=== PATIENT | female | born 1995 | race Caucasian/White ===

== ENCOUNTER 2018-10-02 16:49 | Emergency (ER) | payer OTHER ==
[~2018-10-02] VITALS: Ht 170.2 cm; Wt 54.4 kg
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
--- NOTE | 2018-10-02 17:35 | Diagnostic Imaging Report ---
EXAM: HAND, LEFT, 3 VIEWS INDICATION: Trauma. COMPARISON: None. FINDINGS: No fracture or malalignment. No suspicious osteoblastic or lytic lesions. Soft tissue shadows are normal. IMPRESSION: No acute radiographic findings in the left hand. Dictated by: Dictated on workstation # [id number]
[2018-10-02 17:41] VITALS: BP 154/71
== END 2018-10-02 17:42 | disposition home or self-care (01) ==
LOC: ER 16:51
DX: S60.212A Contusion of left wrist, initial encounter (principal); Z90.89 Acquired absence of other organs; V43.52XA Car driver injured in collision with other type car in traffic accident, initial encounter
CPT/HCPCS: 73130

== ENCOUNTER 2018-10-07 23:33 | Emergency (ER) | payer OTHER | END 2018-10-08 01:51 | disposition home or self-care (01) | LOC: ER 10-08 01:51 ==

== ENCOUNTER 2019-02-18 19:01 | Emergency (ER) | payer OTHER ==
[~2019-02-18] VITALS: Ht 170 cm; Wt 60.0 kg
[~2019-02-18 19:01] MED LIST: CYCL10TA9 PO; MELO15TA14 PO
[2019-02-18] MEDS ORDERED: NS IV 1000 ML 1,000 ML IV SCH (19:14)
[2019-02-18] MEDS ORDERED: ONDANSETRON 4 MG/2 ML (SDV) Z0FRAN IVP ONE (19:30)
[2019-02-18 19:52] LABS: BASOPHILS % (AUTO) 0 % (0-10); BILIRUBIN,URINE NEGATIVE (NEGATIVE); CLARITY,URINE CLEAR; COLOR,URINE YELLOW; EOSINOPHILS # (AUTO) 0.1 10^3/uL (0.0-0.3); EOSINOPHILS % (AUTO) 1 % (0-10); GLUCOSE, URINE (UA) NEGATIVE (NEGATIVE); HEMATOCRIT 38 % (35-52); HEMOGLOBIN 13.4 G/DL (11.5-16.0); KETONES,URINE NEGATIVE (NEGATIVE); LEUKOCYTE ESTERASE ,URINE NEGATIVE (NEGATIVE); LYMPHOCYTES # (AUTO) 1.7 X 10^3 (1.0-4.0); LYMPHOCYTES % (AUTO) 26 % (12-44); MEAN CORPUSCULAR HEMOGLOBIN 31 PG (25-34); MEAN CORPUSCULAR HGB CONC 35 G/DL (32-36); MEAN CORPUSCULAR VOLUME 88 FL (80-99); MEAN PLATELET VOLUME 10.3 FL (7.4-10.4); MONOCYTES # (AUTO) 0.6 X 10^3 (0.0-1.0); MONOCYTES % (AUTO) 9 % (0-12); NEUTROPHILS # (AUTO) 4.1 X 10^3 (1.8-7.8); NEUTROPHILS % (AUTO) 63 % (42-75); NITRITE,URINE NEGATIVE (NEGATIVE); PH,URINE 7 (5-9); PLATELET COUNT 181 10^3/uL (130-400); PROTEIN,URINE NEGATIVE (NEGATIVE); RED CELL DISTRIBUTION WIDTH 12.2 % (10.0-14.5); UROBILINOGEN,URINE NORMAL (NORMAL); WHITE BLOOD COUNT 6.5 10^3/uL (4.3-11.0)
[2019-02-18 19:57] LABS: BACTERIA,URINE TRACE /HPF; RBC,URINE 0-2 /HPF
--- NOTE | 2019-02-18 20:01 | ED General ---
General Chief Complaint: Cardiac/General Problems Stated Complaint: SOA,TIGHTNESS IN CHEST Nursing Triage Note: pt presents to ED with c/o palpitations, vomiting, SOB, chest tightness, and "heart racing" after taking adderall and ecstacy yesterday at 1300. pt A&Ox3 and amb to room 10. Nursing Sepsis Screen: No Definite Risk History of Present Illness Date Seen by Provider: Feb 18, 2019 Time Seen by Provider: 19:15 Initial Comments 23-year-old female presents for tachycardia and palpitations. She reports this morning taking Adderall at 0900, which she uses regularly for ADD. At approximately 1330 she took Ecstasy, from a friend that is not reliable. She also drank ETOH yesterday morning, but unsure what kind or how much. She denies taking anything last night or or ETOH today. She has never taken Ecstasy before. She has been vomiting for 8-10 hours today. She was unable to eat and drink today, because of N/V. Timing/Duration: 12-24 Hours Severity: Mild Associated Systoms: Nausea/Vomiting Allergies and Home Medications Allergies Coded Allergies: No Known Drug Allergies (Unverified , 10/02/18) Home Medications Cyclobenzaprine HCl 10 Mg Tablet, 10 MG PO Q8H Prescribed by: MADAI MARINO on 10/08/18124 Meloxicam 15 Mg Tablet, 15 MG PO DAILY Prescribed by: MADAI MARINO on 10/08/18124 Patient Home Medication List Home Medication List Reviewed: Yes Review of Systems Review of Systems Constitutional: no symptoms reported, see HPI Cardiovascular: see HPI, palpitations Gastrointestinal: see HPI, loss of appetite, nausea, vomiting All Other Systems Reviewed Negative Unless Noted: Yes Past Nnszhrc-Jqugbe-Upjzqe Hx Past Med/Social Hx: Reviewed Nursing Past Med/Soc Hx Patient Social History Alcohol Use: Occasionally Uses Recreational Drug Use: Yes Drug of Choice: ecstacy 2nd Hand Smoke Exposure: No Recent Foreign Travel: No Contact w/Someone Who Travel: No Recent Infectious Disease Expo: No Recent Hopitalizations: No Immunizations Up To Date PED Vaccines UTD: Yes Seasonal Allergies Seasonal Allergies: No Past Medical History Surgeries: No Adenoidectomy, Tonsillectomy Respiratory: No Cardiac: No Neurological: No Reproductive Disorders: No Genitourinary: No Gastrointestinal: No Musculoskeletal: No Endocrine: No HEENT: No Cancer: No Psychosocial: Yes ADD/ADHD Integumentary: No Blood Disorders: No Physical Exam Vital Signs Vital Signs - First Documented 02/18/19 19:11 Temp 37.5 Pulse 102 Resp 22 B/P (MAP) 137/84 (101) Pulse Ox 100 O2 Delivery Room Air Capillary Refill : Less Than 3 Seconds Height, Weight, BMI Height: 5'7.00" Weight: 120lbs. oz. 54.878833jx; 20.00 BMI Method:Stated General Appearance: No Apparent Distress, WD/WN Eyes: Bilateral Eye Normal Inspection, Bilateral Eye PERRL, Bilateral Eye EOMI HEENT: PERRL/EOMI, TMs Normal, Normal ENT Inspection, Pharynx Normal Neck: Full Range of Motion, Normal Inspection, Non Tender, Supple Respiratory: Chest Non Tender, Lungs Clear, Normal Breath Sounds Cardiovascular: Regular Rate, Rhythm, No Murmur, Normal Peripheral Pulses, Tachycardia Gastrointestinal: Normal Bowel Sounds, Non Tender, Soft Back: Normal Inspection, No CVA Tenderness, No Vertebral Tenderness Extremity: Normal Capillary Refill, Normal Inspection, Normal Range of Motion Neurologic/Psychiatric: Alert, Oriented x3, No Motor/Sensory Deficits, Normal Mood/Affect Skin: Normal Color, Warm/Dry Progress/Results/Core Measures Suspected Sepsis Recent Fever Within 48 Hours: No Infection Criteria Present: None New/Unexplained Altered Menta: No Sepsis Screen: No Definite Risk SIRS Temperature: Pulse: 102 Respiratory Rate: 22 Laboratory Tests 02/18/19 19:30: White Blood Count 6.5 Blood Pressure 137 /84 Mean: 101 Laboratory Tests 02/18/19 19:30: Creatinine 0.79, Platelet Count 181, Total Bilirubin 0.4 Results/Orders Lab Results Laboratory Tests Test 02/18/19 19:30 Range/Units White Blood Count 6.5 4.3-11.0 10^3/uL Red Blood Count 4.33 L 4.35-5.85 10^6/uL Hemoglobin 13.4 11.5-16.0 G/DL Hematocrit 38 35-52 % Mean Corpuscular Volume 88 80-99 FL Mean Corpuscular Hemoglobin 31 25-34 PG Mean Corpuscular Hemoglobin Concent 35 32-36 G/DL Red Cell Distribution Width 12.2 10.0-14.5 % Platelet Count 181 130-400 10^3/uL Mean Platelet Volume 10.3 7.4-10.4 FL Neutrophils (%) (Auto) 63 42-75 % Lymphocytes (%) (Auto) 26 12-44 % Monocytes (%) (Auto) 9 0-12 % Eosinophils (%) (Auto) 1 0-10 % Basophils (%) (Auto) 0 0-10 % Neutrophils # (Auto) 4.1 1.8-7.8 X 10^3 Lymphocytes # (Auto) 1.7 1.0-4.0 X 10^3 Monocytes # (Auto) 0.6 0.0-1.0 X 10^3 Eosinophils # (Auto) 0.1 0.0-0.3 10^3/uL Basophils # (Auto) 0.0 0.0-0.1 10^3/uL Urine Color YELLOW Urine Clarity CLEAR Urine pH 7 5-9 Urine Specific [place] 1.005 L 1.016-1.022 Urine Protein NEGATIVE NEGATIVE Urine Glucose (UA) NEGATIVE NEGATIVE Urine Ketones NEGATIVE NEGATIVE Urine Nitrite NEGATIVE NEGATIVE Urine Bilirubin NEGATIVE NEGATIVE Urine Urobilinogen NORMAL NORMAL MG/DL Urine Leukocyte Esterase NEGATIVE NEGATIVE Urine RBC (Auto) 1+ H NEGATIVE Urine RBC 0-2 /HPF Urine WBC NONE /HPF Urine Squamous Epithelial Cells 2-5 /HPF Urine Crystals NONE /LPF Urine Bacteria TRACE /HPF Urine Casts NONE /LPF Urine Mucus NEGATIVE /LPF Urine Culture Indicated NO Sodium Level 141 135-145 MMOL/L Potassium Level 3.7 3.6-5.0 MMOL/L Chloride Level 108 H 98-107 MMOL/L Carbon Dioxide Level 23 21-32 MMOL/L Anion Gap 10 5-14 MMOL/L Blood Urea Nitrogen 9 7-18 MG/DL Creatinine 0.79 0.60-1.30 MG/DL Estimat Glomerular Filtration Rate > 60 BUN/Creatinine Ratio 11 Glucose Level 106 H 70-105 MG/DL Calcium Level 9.3 8.5-10.1 MG/DL Corrected Calcium 8.9 8.5-10.1 MG/DL Total Bilirubin 0.4 0.1-1.0 MG/DL Aspartate Amino Transf (AST/SGOT) 63 H 5-34 U/L Alanine Aminotransferase (ALT/SGPT) 28 0-55 U/L Alkaline Phosphatase 55 40-136 U/L Total Protein 7.4 6.4-8.2 GM/DL Albumin 4.5 3.2-4.5 GM/DL TSH [place] Testing 2.22 0.35-4.94 UIU/ML Salicylates Level < 5.0 L 5.0-20.0 MG/DL Urine Opiates Screen NEGATIVE NEGATIVE Urine Oxycodone Screen NEGATIVE NEGATIVE Urine Methadone Screen NEGATIVE NEGATIVE Urine Propoxyphene Screen NEGATIVE NEGATIVE Acetaminophen Level < 10 L 10-30 UG/ML Urine Barbiturates Screen NEGATIVE NEGATIVE Ur Tricyclic Antidepressants Screen NEGATIVE NEGATIVE Urine Phencyclidine Screen NEGATIVE NEGATIVE Urine Amphetamines Screen NEGATIVE NEGATIVE Urine Methamphetamines Screen NEGATIVE NEGATIVE Urine Benzodiazepines Screen NEGATIVE NEGATIVE Urine Cocaine Screen NEGATIVE NEGATIVE Urine Cannabinoids Screen NEGATIVE NEGATIVE Serum Alcohol < 10 <10 MG/DL My Orders Orders - MARIA ISABEL,VIKAS BOLT SORTER Ua Culture If Indicated (02/18/19 19:14) Cbc With Automated Diff (02/18/19 19:14) Comprehensive Metabolic Panel (02/18/19 19:14) Alcohol (02/18/19 19:14) Drug Screen Stat (Urine) (02/18/19 19:14) Acetaminophen (02/18/19 19:14) Salicylate (02/18/19 19:14) Ekg Tracing (02/18/19 19:14) Ed Iv/Invasive Line Start (02/18/19 19:14) Thyroid Analyzer (02/18/19 19:14) Monitor-Rhythm Ecg Trace Only (02/18/19 19:14) Ns Iv 1000 Ml (Sodium Chloride 0.9%) (02/18/19 19:14) Ondansetron Injection (Zofran Injectio (02/18/19 19:30) Medications Given in ED Current Medications Medications Dose Ordered Sig/Bairon Route Start Time Stop Time Status Last Admin Dose Admin Ondansetron HCl 4 mg ONCE ONCE IVP 02/18/19 19:30 02/18/19 19:31 DC 02/18/19 19:40 4 MG Vital Signs/I&O 02/18/19 02/18/19 19:11 20:56 Temp 37.5 Pulse 102 83 Resp 22 12 B/P (MAP) 137/84 (101) 104/68 Pulse Ox 100 99 O2 Delivery Room Air Room Air Capillary Refill : Less Than 3 Seconds Blood Pressure Mean: 101 Progress Note : Time: 19:15 Progress Note Patient seen and evaluated, will get labs, EKG, normal saline 1 L per IV, Zofran 4 mg IV for nausea. And continue to monitor, Pulse 90-105 1939 Patient's report of symptoms changes, she first said the Adderall and Ecstasy were today, now she said it was yesterday and she drank ETOH today. 1999 Patient report N/V and palpitations are improved. She now reports she ate and drank water, most of today. Because nauseated this evening, but did not vomit. Pulse 80-90. 2029 Labs essentially normal. UDS Negative, explained these results are not compatible if she takes Adderall regularly. She denies taking it today. Stressed the importance to follow up with her PCP and only take prescribed medications, as directed. She reports to be feeling better and no further palpitations. Discharge instructions and return precautions reviewed. ECG Initial ECG Impression Date: Feb 18, 2019 Initial ECG Impression Time: 19:14 Initial ECG Rate: 98 Initial ECG Rhythm: Normal Sinus Initial ECG Intervals: Normal Initial ECG Intervals [place] 164, QRSD 86, QT 356, QTc 455. [place] P 40, QRS 32, T 71. Initial ECG Impression: Normal Initial ECG Comparisson: No Previous ECG Available Comment Reviewed with Dr. Marino, agreed with interpretation. Departure Impression Primary Impression: Palpitations Additional Impressions: Nausea & vomiting Qualified Codes: R11.14 - Bilious vomiting Substance abuse Disposition: 01 HOME, SELF-CARE Condition: Improved Departure-Patient Inst. Decision time for Depature: 20:30 Referrals: NO,LOCAL PHYSICIAN (PCP/Family) Primary Care Physician Patient Instructions: Polysubstance Abuse (DC), Nausea and Vomiting, Adult (DC) Add. Discharge Instructions: Increase water intake, one 16 ounce bottle water every hour while awake. Do not take any pills or drugs that are not prescribed to you and only take as directed Follow-up with your primary care provider if symptoms do not improve or worsen. Return to the emergency department for new, urgent health care problems. All discharge instructions reviewed with patient and/or family. Voiced understanding. Copy Copies To 1: MARCI CARBAJAL MD; LUI RAMEY MD, AMY ARNP Feb 18, 2019 20:01
[2019-02-18 20:04] LABS: AMPHETAMINE SCREEN, URINE NEGATIVE (NEGATIVE); BARBITURATE SCREEN URINE NEGATIVE (NEGATIVE); BENZODIAZEPINES SCREEN URINE NEGATIVE (NEGATIVE); CANNABINOID SCREEN, URINE NEGATIVE (NEGATIVE); COCAINE SCREEN URINE NEGATIVE (NEGATIVE); METHADONE STAT NEGATIVE (NEGATIVE); METHAMPHETAMINE SCREEN URINE S NEGATIVE (NEGATIVE); OPIATE SCREEN URINE NEGATIVE (NEGATIVE); OXYCODONE STAT NEGATIVE (NEGATIVE); PROPOXYPHENE STAT NEGATIVE (NEGATIVE); TRICYCLIC ANTIDEPRESSANTS SCRE NEGATIVE (NEGATIVE)
[2019-02-18 20:16] LABS: ALANINE AMINOTRANSFERASE 28 U/L (0-55); ALBUMIN 4.5 GM/DL (3.2-4.5); ALKALINE PHOSPHATASE 55 U/L (40-136); BILIRUBIN,TOTAL 0.4 MG/DL (0.1-1.0); BUN/CREATININE RATIO 11; CALCIUM 9.3 MG/DL (8.5-10.1); CARBON DIOXIDE 23 MMOL/L (21-32); CHLORIDE 108 MMOL/L (98-107); CREATININE SERUM 0.79 MG/DL (0.60-1.30); GFR ESTIMATED > 60; GLUCOSE 106 MG/DL (70-105); POTASSIUM 3.7 MMOL/L (3.6-5.0); SALICYLATE < 5.0 MG/DL (5.0-20.0); SODIUM 141 MMOL/L (135-145); TOTAL PROTEIN 7.4 GM/DL (6.4-8.2)
[2019-02-18 20:25] LABS: ACETAMINOPHEN < 10 UG/ML (10-30)
[2019-02-18 20:56] VITALS: BP 104/68
== END 2019-02-18 20:50 | disposition home or self-care (01) ==
LOC: EDUNIT# 19:01 → ER 19:02
DX: R00.2 Palpitations (principal); R11.2 Nausea with vomiting, unspecified; F16.10 Hallucinogen abuse, uncomplicated; F15.10 Other stimulant abuse, uncomplicated; F90.9 Attention-deficit hyperactivity disorder, unspecified type; Z90.89 Acquired absence of other organs
CPT/HCPCS: 36415; 80053; 80306; 80320; 80329; 81000; 84443; 85025; 93005; 93041

== ENCOUNTER 2019-03-02 15:59 | Emergency (ER) | payer OTHER ==
[~2019-03-02] VITALS: Ht 170.1 cm; Wt 54.5 kg
[2019-03-02 16:45] LABS: BASOPHILS % (AUTO) 0 % (0-10); EOSINOPHILS # (AUTO) 0.1 10^3/uL (0.0-0.3); EOSINOPHILS % (AUTO) 1 % (0-10); HEMATOCRIT 39 % (35-52); HEMOGLOBIN 13.2 G/DL (11.5-16.0); LYMPHOCYTES % (AUTO) 26 % (12-44); MEAN CORPUSCULAR HEMOGLOBIN 31 PG (25-34); MEAN CORPUSCULAR HGB CONC 34 G/DL (32-36); MEAN CORPUSCULAR VOLUME 89 FL (80-99); MEAN PLATELET VOLUME 10.3 FL (7.4-10.4); MONOCYTES # (AUTO) 0.7 X 10^3 (0.0-1.0); MONOCYTES % (AUTO) 9 % (0-12); NEUTROPHILS # (AUTO) 4.8 X 10^3 (1.8-7.8); NEUTROPHILS % (AUTO) 63 % (42-75); PLATELET COUNT 189 10^3/uL (130-400); RED CELL DISTRIBUTION WIDTH 12.3 % (10.0-14.5); WHITE BLOOD COUNT 7.5 10^3/uL (4.3-11.0)
--- NOTE | 2019-03-02 16:50 | Diagnostic Imaging Report ---
INDICATION: Tachycardia and left arm pain. Frontal chest obtained at 4:42 p.m. FINDINGS: Heart and mediastinal silhouette are normal in appearance. The lungs appear clear. There is no pneumothorax or pleural fluid. IMPRESSION: Negative chest. Dictated by: Dictated on workstation # [id number]
[2019-03-02 17:03] LABS: ALANINE AMINOTRANSFERASE 13 U/L (0-55); ALBUMIN 4.3 GM/DL (3.2-4.5); ALKALINE PHOSPHATASE 41 U/L (40-136); BILIRUBIN,TOTAL 0.2 MG/DL (0.1-1.0); BUN/CREATININE RATIO 14; CALCIUM 9.3 MG/DL (8.5-10.1); CARBON DIOXIDE 23 MMOL/L (21-32); CHLORIDE 107 MMOL/L (98-107); CREATININE SERUM 0.71 MG/DL (0.60-1.30); GFR ESTIMATED > 60; GLUCOSE 95 MG/DL (70-105); POTASSIUM 3.8 MMOL/L (3.6-5.0); SODIUM 139 MMOL/L (135-145); TOTAL PROTEIN 7.1 GM/DL (6.4-8.2)
[2019-03-02 17:13] LABS: INR 0.9 (0.8-1.4); PROTHROMBIN TIME PATIENT 12.9 SEC (12.2-14.7)
[2019-03-02 17:59] LABS: AMPHETAMINE SCREEN, URINE NEGATIVE (NEGATIVE); BARBITURATE SCREEN URINE NEGATIVE (NEGATIVE); BENZODIAZEPINES SCREEN URINE NEGATIVE (NEGATIVE); CANNABINOID SCREEN, URINE POSITIVE (NEGATIVE); COCAINE SCREEN URINE NEGATIVE (NEGATIVE); METHADONE STAT NEGATIVE (NEGATIVE); METHAMPHETAMINE SCREEN URINE S NEGATIVE (NEGATIVE); OPIATE SCREEN URINE NEGATIVE (NEGATIVE); OXYCODONE STAT NEGATIVE (NEGATIVE); PROPOXYPHENE STAT NEGATIVE (NEGATIVE); TRICYCLIC ANTIDEPRESSANTS SCRE NEGATIVE (NEGATIVE)
--- NOTE | 2019-03-02 18:32 | ED Chest Pain ---
General Chief Complaint: Cardiac/General Problems Stated Complaint: HEART RACING / L ARM PAIN Nursing Triage Note: PT AMB TO RM 2 WITH COMPLAINT OF HIGH HEART RATE AND LEFT ARM PAIN. PT STATES HER HEART HAS BEEN RACING ALL DAY. STATES WHENEVER HER HEART RATE ELEVATED SHE BEGAN TO HAVE LEFT ARM PAIN. Nursing Sepsis Screen: No Definite Risk Source: patient Exam Limitations: no limitations History of Present Illness Date Seen by Provider: Mar 02, 2019 Time Seen by Provider: 16:15 Initial Comments This 23-year-old young lady presents to the emergency room with complaints of palpitations, racing heart, pain in the left chest and left arm, "seeing stars", and tunnel vision. She reports this happened around noon and worsened when she went to work. Exertion worsens the symptoms. Deep inspiration does not change them. She had a similar episode a couple weeks ago when she presented to the emergency room. She had also used ecstasy, Adderall, and alcohol at that time. She denies any use of an appropriate prescription medications or illicit substan vita since then. She denies any use of supplements or stimulants. Allergies and Home Medications Allergies Coded Allergies: No Known Drug Allergies (Unverified , 10/02/18) Home Medications Cyclobenzaprine HCl 10 Mg Tablet, 10 MG PO Q8H Prescribed by: MADAI CANELA on 10/08/18124 Meloxicam 15 Mg Tablet, 15 MG PO DAILY Prescribed by: MADAI CANELA on 10/08/18124 Patient Home Medication List Home Medication List Reviewed: Yes Review of Systems Review of Systems Constitutional: no symptoms reported EENTM: No Symptoms Reported Respiratory: No Symptoms Reported Cardiovascular: See HPI Gastrointestinal: No Symptoms Reported Musculoskeletal: no symptoms reported Skin: no symptoms reported Psychiatric/Neurological: See HPI Endocrine: No Symptoms Reported Hematologic/Lymphatic: No Symptoms Reported Past Domjjij-Jhlmul-Dxyskt Hx Past Med/Social Hx: Reviewed and Corrections made Patient Social History Alcohol Use: Occasionally Uses Recreational Drug Use: No Drug of Choice: ecstacy Smoking Status: Never a Smoker 2nd Hand Smoke Exposure: No Recent Foreign Travel: No Contact w/Someone Who Travel: No Recent Infectious Disease Expo: No Recent Hopitalizations: No Physical Abuse: No Sexual Abuse: No Mistreated: No Fear: No Immunizations Up To Date Tetanus Booster (TDap): Unknown PED Vaccines UTD: Yes Seasonal Allergies Seasonal Allergies: No Past Medical History Surgeries: Yes ([place] teeth) Adenoidectomy, Tonsillectomy Respiratory: No Cardiac: No Neurological: No : No Last Menstrual Period: Jan 31, 2019 Reproductive Disorders: No Genitourinary: No Gastrointestinal: No Musculoskeletal: No Endocrine: No HEENT: No Cancer: No Psychosocial: Yes ADD/ADHD Integumentary: No Blood Disorders: No Physical Exam Vital Signs Vital Signs - First Documented 03/02/19 16:07 Temp 37.8 Pulse 102 Resp 20 B/P (MAP) 123/83 (96) Pulse Ox 100 O2 Delivery Room Air Capillary Refill : Less Than 3 Seconds Height, Weight, BMI Height: 5'7.00" Weight: 120lbs. oz. 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 Skin: Normal Color, Warm/Dry Progress/Results/Core Measures Results/Orders Lab Results Laboratory Tests Test 03/02/19 16:38 03/02/19 17:30 Range/Units White Blood Count 7.5 4.3-11.0 10^3/uL Red Blood Count 4.33 L 4.35-5.85 10^6/uL Hemoglobin 13.2 11.5-16.0 G/DL Hematocrit 39 35-52 % Mean Corpuscular Volume 89 80-99 FL Mean Corpuscular Hemoglobin 31 25-34 PG Mean Corpuscular Hemoglobin Concent 34 32-36 G/DL Red Cell Distribution Width 12.3 10.0-14.5 % Platelet Count 189 130-400 10^3/uL Mean Platelet Volume 10.3 7.4-10.4 FL Neutrophils (%) (Auto) 63 42-75 % Lymphocytes (%) (Auto) 26 12-44 % Monocytes (%) (Auto) 9 0-12 % Eosinophils (%) (Auto) 1 0-10 % Basophils (%) (Auto) 0 0-10 % Neutrophils # (Auto) 4.8 1.8-7.8 X 10^3 Lymphocytes # (Auto) 2.0 1.0-4.0 X 10^3 Monocytes # (Auto) 0.7 0.0-1.0 X 10^3 Eosinophils # (Auto) 0.1 0.0-0.3 10^3/uL Basophils # (Auto) 0.0 0.0-0.1 10^3/uL Prothrombin Time 12.9 12.2-14.7 SEC INR Comment 0.9 0.8-1.4 Activated Partial Thromboplast Time 28 24-35 SEC D-Dimer <= 0.27 0.00-0.49 UG/ML Sodium Level 139 135-145 MMOL/L Potassium Level 3.8 3.6-5.0 MMOL/L Chloride Level 107 98-107 MMOL/L Carbon Dioxide Level 23 21-32 MMOL/L Anion Gap 9 5-14 MMOL/L Blood Urea Nitrogen 10 7-18 MG/DL Creatinine 0.71 0.60-1.30 MG/DL Estimat Glomerular Filtration Rate > 60 BUN/Creatinine Ratio 14 Glucose Level 95 70-105 MG/DL Calcium Level 9.3 8.5-10.1 MG/DL Corrected Calcium 9.1 8.5-10.1 MG/DL Magnesium Level 2.0 1.6-2.4 MG/DL Total Bilirubin 0.2 0.1-1.0 MG/DL Aspartate Amino Transf (AST/SGOT) 18 5-34 U/L Alanine Aminotransferase (ALT/SGPT) 13 0-55 U/L Alkaline Phosphatase 41 40-136 U/L Myoglobin 29.3 10.0-92.0 NG/ML Troponin I < 0.028 <0.028 NG/ML Total Protein 7.1 6.4-8.2 GM/DL Albumin 4.3 3.2-4.5 GM/DL Serum Test, Qualitative NEGATIVE NEGATIVE Serum Alcohol < 10 <10 MG/DL Urine Opiates Screen NEGATIVE NEGATIVE Urine Oxycodone Screen NEGATIVE NEGATIVE Urine Methadone Screen NEGATIVE NEGATIVE Urine Propoxyphene Screen NEGATIVE NEGATIVE Urine Barbiturates Screen NEGATIVE NEGATIVE Ur Tricyclic Antidepressants Screen NEGATIVE NEGATIVE Urine Phencyclidine Screen NEGATIVE NEGATIVE Urine Amphetamines Screen NEGATIVE NEGATIVE Urine Methamphetamines Screen NEGATIVE NEGATIVE Urine Benzodiazepines Screen NEGATIVE NEGATIVE Urine Cocaine Screen NEGATIVE NEGATIVE Urine Cannabinoids Screen POSITIVE H NEGATIVE My Orders Orders - ELEANOR ROGERS MD Cbc With Automated Diff (03/02/19:) Magnesium (03/02/19:) Chest 1 View, Ap/Pa Only (03/02/19:) Ekg Tracing (03/02/19:) Cardiac Profile 1 (03/02/19:) Comprehensive Metabolic Panel (03/02/19) Myoglobin Serum (03/02/19:) Protime With Inr (03/02/19:) Partial Thromboplastin Time (03/02/19:) O2 (03/02/19:) Monitor-Rhythm Ecg Trace Only (03/02/19:) Ed Iv/Invasive Line Start (03/02/19:) Fibrin Degradation Products (03/02/19:) Alcohol (03/02/19:) Drug Screen Stat (Urine) (03/02/19:) Hcg,Qualitative Serum (03/02/19 16:) Vital Signs/I&O 03/02/19 03/02/19 16:07 18:58 Temp 37.8 Pulse 102 86 Resp 20 17 B/P (MAP) 123/83 (96) 106/71 Pulse Ox 100 99 O2 Delivery Room Air Room Air Blood Pressure Mean: 96 Initial ECG Impression Date: Mar 02, 2019 Initial ECG Impression Time: 16:29 Initial ECG Rate: 97 Initial ECG Rhythm: Normal Sinus Initial ECG Intervals: Normal Initial ECG Impression: Normal Comment Normal sinus rhythm with no ST elevation or depression. No abnormal intervals or axis deviation. Diagnostic Imaging Diagonstic Imaging: Xray Plain Films/CT/US/NM/MRI: chest Comments Chest x-ray viewed by me and report reviewed. See report below: NAME: JORGE HAQUE [facility] REC#: [id number] PT STATUS: REG ER : 1995 PHYSICIAN: ELEANOR ROGERS MD ADMIT DATE: 03/02/19/ER Signed Date of Exam: 03/02/19 CHEST 1 VIEW, AP/PA ONLY INDICATION: Tachycardia and left arm pain. Frontal chest obtained at 4:42 p.m. FINDINGS: Heart and mediastinal silhouette are normal in appearance. The lungs appear clear. There is no pneumothorax or pleural fluid. IMPRESSION: Negative chest. Dictated by: Dictated on workstation # [id number] Dict: 03/02/191646 Trans: 03/02/191655 Interpreted by: NEHEMIAH MUNOZ MD Electronically signed by: NEHEMIAH MUNOZ MD 03/02/191655 Departure Impression Primary Impression: Tachycardia Additional Impression: Atypical chest pain Disposition: HOME, SELF-CARE Condition: Improved Departure-Patient Inst. Decision time for Depature: 18:25 Referrals: NO,LOCAL PHYSICIAN (PCP/Family) Primary Care Physician Patient Instructions: Anxiety, Adult (DC), Chest Pain (DC) Add. Discharge Instructions: The exact cause of your chest pain is uncertain. No dangerous pathologies were identified during your ER visit. Follow-up with your primary care provider or the [facility] on campus as soon as possible. Discuss the potential for outpatient cardiac monitoring. Avoid use of any stimulants such as caffeine, energy drinks, diet pills, illicit drugs or decongestants that may accelerate your heart rate. Also avoid any mind altering substances such as alcohol or marijuana. If symptoms return, try self calming methods. If this does not resolve the symptoms, you may return to the emergency room. All discharge instructions reviewed with patient and/or family. Voiced understanding. Copy Copies To 1: MARCI CARBAJAL MD, JOSHUA T MD Mar 02, 2019 18:32
[2019-03-02 18:58] VITALS: BP 106/71
== END 2019-03-02 18:58 | disposition home or self-care (01) ==
LOC: EDUNIT# 15:59 → ER 16:00
DX: R00.0 Tachycardia, unspecified (principal); R07.89 Other chest pain; F90.9 Attention-deficit hyperactivity disorder, unspecified type; Z90.89 Acquired absence of other organs
CPT/HCPCS: 36415; 71045; 80053; 80306; 80320; 83735; 83874; 84484; 84703; 85025; 85379; 85610; 85730; 93005; 93041